=== PATIENT | male | born 1985 | race Caucasian/White ===

== ENCOUNTER 2017-07-18 13:49 | Emergency (ER) | payer SELFPAY ==
--- NOTE | 2017-07-18 15:13 | RAD ---
INDICATION: Lateral ankle pain after injury COMPARISON: None. TECHNIQUE: 3 views of the left ankle were obtained. FINDINGS: The well corticated bones exhibit normal alignment. Joint spaces appear maintained. No fracture is seen. IMPRESSION: Normal ankle radiograph. If the patient's symptoms persist, follow-up imaging is recommended.
--- NOTE | 2017-07-18 15:27 | UC ---
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 - History of Current Complaint Chief Complaint: UCLowerExtremity Stated Complaint: ANKLE INJURY Time Seen by Provider: 07/18/17 14:51 Hx Obtained From: Patient Onset/Duration: Sudden Onset, Lasting Days - 1, Still Present Severity Initially: Moderate Severity Currently: Moderate Aggravating Factor(s): Standing, Ambulation Alleviating Factor(s): Rest, Elevation Able to Bear Weight: Yes - with pain - Allergies/Home Medications Allergies/Adverse Reactions: Allergies Allergy/AdvReac Type Severity Reaction Status Date / Time Sulfate Allergy Unknown Verified 07/18/17 14:20 Reaction Details Home Medications: Home Medications Glucosamine Sulfate [Glucosamine] mg PO DAILY 07/18/17 [History] Multiple Vitamins W/ Minerals [Multivitamin Mens] 1 tab PO DAILY 07/18/17 [ History Confirmed 07/18/17] PMH/Surg Hx/FS Hx/Imm Hx Previously Healthy: Yes - Surgical History Surgical History: None - Family History Known Family History: Positive: None - Social History Occupation: Employed Full-time Lives: With Family Alcohol Use: Occasionally Substance Use Type: None Smoking Status (MU): Light Every Day Tobacco Smoker - Immunization History Most Recent Influenza Vaccination: declined Review of Systems Constitutional: Negative Skin: Negative Eyes: Negative ENT: Negative Respiratory: Negative Cardiovascular: Negative Gastrointestinal: Negative Genitourinary: Negative Motor: Negative Neurovascular: Negative Musculoskeletal: Arthralgia - left lateral ankle pain and posterior pain Neurological: Negative Psychological: Negative Is Patient Immunocompromised?: No All Other Systems Reviewed And Are Negative: Yes Physical Exam Triage Information Reviewed: Yes Appearance: Well-Appearing, Well-Nourished, Pain Distress - moderate Vital Signs: Initial Vital Signs Temp 98.2 F 07/18/17 14:14 Pulse 82 07/18/17 14:14 Resp 18 07/18/17 14:14 BP 159/101 07/18/17 14:14 Pulse Ox 99 07/18/17 14:14 Vital Signs Reviewed: Yes Eye Exam: Normal Eyes: Positive: Conjunctiva Clear ENT Exam: Normal ENT: Positive: Normal ENT inspection, Hearing grossly normal. Negative: Nasal congestion, Tonsillar swelling, Tonsillar exudate, Trismus, Muffled voice, Hoarse voice Dental Exam: Normal Neck exam: Normal Neck: Positive: Supple, Nontender, No Lymphadenopathy Respiratory Exam: Normal Respiratory: Positive: Chest non-tender, Lungs clear, Normal breath sounds, No respiratory distress, No accessory muscle use Cardiovascular Exam: Normal Cardiovascular: Positive: RRR, No Murmur, Pulses Normal, Brisk Capillary Refill Musculoskeletal Exam: Other Musculoskeletal: Positive: Strength Limited @ - left, ROM Limited @ - left ankle , Edema @ - left ankle Neurological Exam: Normal Neurological: Positive: Alert, Muscle Tone Normal Psychological Exam: Normal Skin Exam: Normal Diagnostics - Radiology No standard instances Xray Interpretation: No Acute Changes Radiology Interpretation Completed By: ED Physician, Radiologist Re-Evaluation - Re-Evaluation First Eval Change: Improved Lower Extremity Course/Dx - Course Course Of Treatment: rice, selena, crutches,pain med,follow with ortho - Differential Dx/Diagnosis Provider Diagnoses: left ankle sprain, elevated blood pressure related to acute injury Discharge - Discharge Plan Condition: Stable Disposition: HOME Prescriptions: Hydrocodone-Acetaminophen [Hydrocodone/Acetaminophen 5-325 mg] 1 tab PO QID PRN #20 tab MDD 4 PRN Reason: Pain - Moderate To Severe Ibuprofen TAB* [Motrin TAB* 600 MG] 600 mg PO Q6H PRN #40 tab PRN Reason: Pain - Mild To Moderate Patient Education Materials: Ankle Sprain (ED), Crutch Instructions (ED), R.I.C.E. Treatment (ED) Forms: *Work Release Referrals: Marcelo Acevedo MD [Medical Doctor] - No Primary Care Phys,NOPCP [Primary Care Provider] -
== END 2017-07-18 16:11 | disposition home or self-care (01) ==
LOC: UCEAST 13:49
DX: S93.402A Sprain of unspecified ligament of left ankle, initial encounter (principal); R03.0 Elevated blood-pressure reading, without diagnosis of hypertension; F17.290 Nicotine dependence, other tobacco product, uncomplicated; Z88.8 Allergy status to other drugs, medicaments and biological substances; X50.9XXA Other and unspecified overexertion or strenuous movements or postures, initial encounter; Y92.9 Unspecified place or not applicable
CPT/HCPCS: 99203; G0463

== ENCOUNTER → 2019-02-22 05:47 | Day surgery (SDC) | payer BC ==
[~2019-02-22 05:47] MED LIST: Bacitracin OINTMENT* 0.5% 0.5 oz TUBE ONE; Buffered Lidocaine 1% SYRIN* 1 ML/SYRINGE INTRADERM ONE; Bupivacaine 0.25% SDV PF* 10 ML VIAL INJ ONE; Dexamethasone TAB* 4 MG ONE; Dexamethasone TAB* 4 MG PO ONE; DiMENhydriNATE IV* 50 MG/ML VIAL IV PUSH PRN; Famotidine IV* 10 MG/ML 2 ML (20 mg) IV ONE; Famotidine IV* 10 MG/ML 2 ML (20 mg) ONE; Gelfoam Sponge SIZE 100* SPONGE ONE; HYDROmorphone INJ1* 1 MG/ML SYRINGE IV PRN; Lactated Ringers 1000 ML Bag* 1,000 ML IV SCH; Naloxone* 0.4 MG/ML 1 ML VIAL IV PRN; Ondansetron ODT TAB* 4 MG ONE; Ondansetron ODT TAB* 4 MG PO ONE; PROCHLORPERAZINE INJ 5 MG/ML 2 ML VIAL IV PRN; Scopolamine 1.5 mg* PATCH TRANSDERM PRN; Scopolamine PATCH Remove* 1 NOTE MISC PATCH OFF ONE; ceFOXitin 2 GM IVPREMIX* 2 GM/50 ML BAG ONE; fentaNYL* 50 MCG/ML 2 ML VIAL (100 MCG VIAL) IV PRN; oxyCODONE/Acetamin 5/325 MG* TAB PO PRN
[2019-02-22 08:45] VITALS: BP 146/98
--- NOTE | 2019-02-22 09:46 | OP ---
DATE OF OPERATION: 02/22/19 - [facility] DATE OF : 81 ATTENDING SURGEON: Travis Braden MD [employer] MECH[employer]IC: None. PRE-OP DIAGNOSES: Anal pain and bleeding. POST-OP DIAGNOSIS: Posterior midline anal fissure. OPERATIVE PROCEDURE: Rectal examination under anesthesia, lateral internal sphincterotomy. INDICATIONS FOR PROCEDURE: Anal pain and bleeding. Risks of possible sphincterotomy including, but not limited to bleeding, infection, temporary or permanent incontinence to gas or stool, persistent fissure, others explained to the patient, who seemed to understand and agreed to procedure and all questions were answered. DESCRIPTION OF PROCEDURE: The patient was taken to the operating room, placed in a prone jackknife position. Sedation was given by the anesthesiologist. The buttock was taped apart. Preoperative antibiotics had been given. The area was prepped and draped in sterile fashion. Time-out was performed indicating correct patient, correct procedure. Digital rectal examination revealed normal tone, no masses. An obvious posterior midline fissure was noted. Retractor was placed through the anus. Distal rectal mucosa appeared otherwise normal. Some internal hemorrhoids were noted. The skin over the left lateral intersphincteric groove was anesthetized with a 0.25% Marcaine plain. A small incision was made and a hemostat was used to separate and isolate a small portion of the internal sphincter muscle, which approximated the size of the fissure, approximately 5 mm. This was divided with Bovie cautery. The wound was irrigated. Antibiotic ointment and a gauze dressing was applied. EBL was minimal. He tolerated the procedure well. He was taken to Recovery in stable condition. [id number]/[facility] #: [id number] [facility]
== END | disposition home or self-care (01) ==
LOC: OR 05:47
PROVIDERS: ATTEND Surgery
DX: K60.2 Anal fissure, unspecified (principal); K62.5 Hemorrhage of anus and rectum; Z72.0 Tobacco use
CPT/HCPCS: A9270-GY; J0694; J3490; J8540